=== PATIENT | female | born 1955 | race Caucasian/White ===

== ENCOUNTER 2023-03-12 08:22 | Observation (INO) | payer OTHER, MEDICARE ==
[~2023-03-12] VITALS: Ht 180.3 cm; Wt 90.9 kg
[~2023-03-12 08:22] MED LIST: BARIUM SULFATE 340 ML SUSP.RECON***PROCEDURE AREA ONLY**DONT ENTER PO ONE; OMEP20CA15 PO
--- NOTE | 2023-03-12 09:27 | NUR ---
Pt taken to have esopharam
[2023-03-12 10:40] LABS: BASOPHILS % (AUTO) 0.5 % (0-1); EOSINOPHILS % (AUTO) 0.6 % (0-6); HEMATOCRIT 37.3 % (35.0-45.0); HEMOGLOBIN 12.5 g/dl (12.0-16.0); LYMPHOCYTES % (AUTO) 17.4 % (21-51); MEAN CORPUSCULAR HEMOGLOBIN 28.7 PG (27.0-31.0); MEAN CORPUSCULAR HGB CONC 33.4 g/dL (33.0-36.5); MEAN CORPUSCULAR VOLUME 85.8 FL (78-98); MEAN PLATELET VOLUME 8.2 FL (7.4-10.4); MONOCYTES # (AUTO) 0.4 X10'3 (0-0.9); NEUTROPHILS # (AUTO) 4.5 X10'3 (1.8-7.7); NEUTROPHILS % (AUTO) 74.5 % (42-75); PLATELET COUNT 197 X10'3 (140-440); RED BLOOD COUNT 4.35 X10'6 (4.20-5.60); RED CELL DISTRIBUTION WIDTH 13.2 % (11.5-14.5)
[2023-03-12 10:51] LABS: CLARITY,URINE CLOUDY (Clear); COLOR,URINE YELLOW (Yellow); GLUCOSE, URINE NEGATIVE (Neg); KETONES,URINE 40 mg/dl (Neg); LEUKOCYTE ESTERASE ,URINE TRACE (Neg); NITRITES, URINE POSITIVE (Neg); OCCULT BLOOD,URINE MODERATE (Neg); PROTEIN,URINE NEGATIVE (Neg)
[2023-03-12 10:52] LABS: UA COLLECTION TYPE NON-SPECIFIED
[2023-03-12 10:56] LABS: ALANINE AMINOTRANSFERASE 15 U/L (12-78); ALBUMIN 3.7 G/DL (3.4-5.0); ALBUMIN/GLOBULIN RATIO 1.2 (1.1-1.5); ALKALINE PHOSPHATASE 65 IU/L (46-116); ANION GAP 9 (8-16); ASPARTATE AMINO TRANSFERASE 13 U/L (10-37); BILIRUBIN,TOTAL 0.5 MG/DL (0.1-1.0); BLOOD UREA NITROGEN 11 MG/DL (7-18); CHLORIDE 104 MMOL/L (99-107); GLUCOSE 108 MG/DL (70-104); LIPASE 137 U/L (73-393); POTASSIUM 3.5 MMOL/L (3.5-5.1); SODIUM 139 MMOL/L (135-145); TOTAL CARBON DIOXIDE 26.1 MMOL/L (24-32); TOTAL PROTEIN 6.8 G/DL (6.4-8.2); eGFR 55 ML/MIN
[2023-03-12 10:59] LABS: SQUAMOUS EPITHELIAL CELL,UR MANY /LPF (FEW)
[2023-03-12 11:00] LABS: BACTERIA,URINE 4+ /HPF (Neg)
[2023-03-12 11:02] LABS: TRANSITIONAL EPI CELLS,URINE FEW /HPF
--- NOTE | 2023-03-12 11:19 | NUR ---
URINE REJECTED FOR CULTURE Addendum: 03/12/23 at 1122 by ELODIA PT GIVEN NEW SPECIMEN CUP AND INSTRUCTED ON HOW TO DO A CLEAN CATCH MID STREAM
[2023-03-12] MEDS ORDERED: potassium Cl 40MEQ/1/2NS 520ml 520 ML IV PRN (11:35)
[2023-03-12] MEDS ORDERED: magnesium 2GM in 50ml NS 50 ML IV PRN (11:35)
[2023-03-12] MEDS ORDERED: magnesium Cl slow-release 64mg tablet PO PRN (11:35)
[2023-03-12] MEDS ORDERED: magnesium 4gm in 100ml NS 100 ML IV PRN (11:35)
[2023-03-12] MEDS ORDERED: potassium Cl 20 mEq SR tablet PO PRN ×2 (11:35)
[2023-03-12] MEDS: normal saline 1000ml 1,000 ML IV SCH ×2 (12:25→20:48)
[2023-03-12] MEDS ORDERED: FAMO20TA8 PO (12:28)
--- NOTE | 2023-03-12 12:41 | NUR ---
Patient in a hospital gown,awaiting for inpatient room assignment.
--- NOTE | 2023-03-12 14:02 | NUR ---
Patient up to the bathroom, spouse came to visit.
[2023-03-12] MEDS: K and/or MAG REPLACEMENT MC SCH (19:30)
--- NOTE | 2023-03-12 20:17 | NUR ---
ATTEMPTED TO CALL REPORT AT 2014. NURSE UNAVAILABLE TO RECEIVE. WILL CALL BACK 5-10 MINUTES
[2023-03-12 20:45] VITALS: BP 141/78
[2023-03-12 22:00] VITALS: BP 138/76
[2023-03-13] VITALS (8 sets, daily range): BP systolic 128–164; BP diastolic 65–95
--- NOTE | 2023-03-13 06:35 | NUR ---
Patient in room PCU 3018. I have received report from TORITO Evans and had the opportunity to ask questions and assume patient care.
--- NOTE | 2023-03-13 06:35 | NUR ---
Problems reprioritized. Patient report given, questions answered & plan of care reviewed with Ira UGARTE. Addendum: 03/13/23 at 0635 by Cristina Kirkpatrick RN Amended: Links added.
[2023-03-13] MEDS: normal saline 1000ml 1,000 ML IV SCH ×2 (07:05→17:35)
[2023-03-13 07:55] LABS: ALBUMIN 3.4 G/DL (3.4-5.0); ANION GAP 9 (8-16); BASOPHILS % (AUTO) 0.8 % (0-1); BLOOD UREA NITROGEN 12 MG/DL (7-18); BUN/CREATININE RATIO 12.1 (10.0-20.0); CALCIUM 8.8 MG/DL (8.5-10.1); CHLORIDE 109 MMOL/L (99-107); CREATININE 0.99 MG/DL (0.40-0.90); EOSINOPHILS % (AUTO) 0.6 % (0-6); GLUCOSE 69 MG/DL (70-104); HEMATOCRIT 37.9 % (35.0-45.0); HEMOGLOBIN 12.3 g/dl (12.0-16.0); LYMPHOCYTES # (AUTO) 1.6 X10'3 (1.1-4.8); LYMPHOCYTES % (AUTO) 32.1 % (21-51); MAGNESIUM 1.8 MG/DL (1.5-2.4); MEAN CORPUSCULAR HEMOGLOBIN 28.1 PG (27.0-31.0); MEAN CORPUSCULAR HGB CONC 32.4 g/dL (33.0-36.5); MEAN CORPUSCULAR VOLUME 86.6 FL (78-98); MEAN PLATELET VOLUME 8.1 FL (7.4-10.4); MONOCYTES # (AUTO) 0.4 X10'3 (0-0.9); MONOCYTES % (AUTO) 8.6 % (2-12); NEUTROPHILS # (AUTO) 2.9 X10'3 (1.8-7.7); NEUTROPHILS % (AUTO) 57.9 % (42-75); PLATELET COUNT 205 X10'3 (140-440); POTASSIUM 3.6 MMOL/L (3.5-5.1); RED BLOOD COUNT 4.37 X10'6 (4.20-5.60); RED CELL DISTRIBUTION WIDTH 13.2 % (11.5-14.5); SODIUM 144 MMOL/L (135-145); TOTAL CARBON DIOXIDE 25.9 MMOL/L (24-32); eGFR 56 ML/MIN
[2023-03-13] MEDS ORDERED: bisacodyl 10mg suppository rectal RC PRN (07:55)
[2023-03-13] MEDS ORDERED: magnesium hydroxide 30ml (MOM) UD suspension PO PRN (07:55)
[2023-03-13] MEDS: K and/or MAG REPLACEMENT MC SCH ×2 (08:00→08:27)
[2023-03-13] MEDS ORDERED: PANT-47 PO (10:40)
--- NOTE | 2023-03-13 12:46 | NUR ---
Per EMR pt admit for dysphagia. 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 Pt to undergo an upper endoscopy with possible dilation per H&P. Noted active discharge orders in EMR though pt remains NPO. Will continue to follow and make recommendations as appropriate. Addendum: 03/13/23 at [address] Amended: Links added.
[2023-03-13] MEDS ORDERED: LIDOcaine Viscous 15ml cup ONE (17:27)
[2023-03-13] MEDS ORDERED: MIDAZolam 1 MG/ML 5ML VIAL ONE (17:27)
[2023-03-13] MEDS ORDERED: fentaNYL/PF 50MCG/1 ML 2ML syringe ONE (17:27)
--- NOTE | 2023-03-13 18:00 | NUR ---
Problems reprioritized. Patient report given, questions answered & plan of care reviewed with TORITO Hill.
--- NOTE | 2023-03-13 20:50 | NUR ---
pt returned from GI lab with her who was ready to drive her home. Discharged home following discharge instructions given by FRANCINE Mccabe. IV was removed. Pt discharged immediately on return from GI lab.
== END 2023-03-13 20:50 | disposition home or self-care (01) ==
LOC: ER 08:24 → ED HOLD 11:35 → PCU 3S 20:40
PROVIDERS: ADMIT Internal Medicine; ATTEND Internal Medicine
DX: K22.2 Esophageal obstruction (principal); K44.9 Diaphragmatic hernia without obstruction or gangrene; K25.9 Gastric ulcer, unspecified as acute or chronic, without hemorrhage or perforation; J44.9 Chronic obstructive pulmonary disease, unspecified; Z79.899 Other long term (current) drug therapy
CPT/HCPCS: 36415; 43239; 43248; 74220; 80048; 80053; 81001; 83690; 83735; 85025; 87081; 99284; G0378; J2250; J3010; J7030; 99152; A4620; C1769